=== PATIENT | male | born 2000 | race Caucasian/White ===

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

== ENCOUNTER 2021-12-18 01:43 | Emergency (ER) | payer SELFPAY ==
[~2021-12-18] VITALS: Ht 180.3 cm; Wt 74.6 kg
[~2021-12-18 01:43] MED LIST changes: +BUPR-225 PO; -BUPR100SR PO; -CLON1 PO; -LITH300C3 PO; -RISP1 PO; +RISP1TAB48 PO; +SERT-158 PO; -SERT50TA12 PO; -TRAZ150 PO
[2021-12-18] MEDS ORDERED: SODIUM CHLORIDE 0.9% 1,000 ML IV ONE (02:15)
[2021-12-18] MEDS ORDERED: KETOROLAC TROMETHAMINE 30 MG/ML VIAL IVP ONE (02:15)
[2021-12-18] MEDS ORDERED: METOCLOPRAMIDE HCL 5 MG/ML 2 ML VIAL IVP ONE (02:15)
[2021-12-18] MEDS ORDERED: DiphenhydrAMINE HCL 50 MG/ML VIAL IVP ONE (02:15)
[2021-12-18 03:21] VITALS: BP 120/80
== END 2021-12-18 03:23 | disposition home or self-care (01) ==
LOC: EMS 01:43
DX: G43.909 Migraine, unspecified, not intractable, without status migrainosus (principal); F32.9 Major depressive disorder, single episode, unspecified; F41.9 Anxiety disorder, unspecified; Z79.899 Other long term (current) drug therapy
CPT/HCPCS: 99284; 96374; 96375; 96361; J1200; J1885; J2765; J7030